=== PATIENT | female | born 1965 | race Caucasian/White ===

== ENCOUNTER 2024-04-01 08:39 | Emergency (ER) | payer OTHER, SELFPAY ==
[2024-04-01 08:44] VITALS: BP 125/67
[2024-04-01 10:03] VITALS: BMI 19.0
--- NOTE | 2024-04-01 11:01 | ED.GENMED ---
History of Present Illness
General
Chief Complaint: Musculo-Skeletal Complaint
Source: patient
Exam Limitations: none
Time Seen by Provider: 04/01/24 09:57
Nursing documentation reviewed up to this point in time: agreed with
Travel History
Have you had any contact with someone who has COVID-19?: No
Do you have any symptoms of coronavirus? Fever > 100 degrees, chills, cough, shortness of breath, sore throat, loss of taste or smell, muscle aches, or headache?: No
History of Present Illness
History of Present Illness:
58 y/o F with no sig pmh
inversion injury to L ankle yesterday 3 pm
has been able to walk on it
swelling and bruising present
felt a crack during the injury
came last night but the wait was very long and left
she has not taken anything for pain
used a cane just to assist her walking but says today she actually feels better;
Past History
Past History
ED Past Medical History: None
ED Past Surgical History: None
Social History
Tobacco: Non-smoker
Personal:
Living: with family
Employment: Employed
Review of Systems
Review of Systems
Allergies reviewed?: Yes
All Other Systems: Not applicable
Phy Exam
Physical Exam
Physical Exam:
GENERAL: Alert , in no apparent distress, comfortable at rest
HEAD: NCAT
CV: 2+ DP PULSES B/L
NEUROLOGICAL: Alert and oriented, no focal neuro deficits, , 5/5 strength, sensation intact, ambulation slight limp right leg
SKIN: Warm and dry, ecchymosis
MUSCULOSKELETAL: mild STS right ankle with tenderness to malleolus laterally; minimal pain with inversion, eversion
no tenderness at the base of the 5th metatarsal, no other foot tenderness
some bruising to anterior lateral midfoot/ankle region
no knee/prox tib/fib tenderness, full painless ROM;
PSYCH: Normal and appropriate interaction.
Course
Orders/Labs/Results
Orders:
Orders
04/01/24 08:47
CR Ankle - Left Min 3 Views Urgent
Comment:
Reason For Exam: Injury
Vital Signs
Initial and Last Documented VS:
Initial Vital Signs
Temp Pulse Resp BP Pulse Ox
98.1 F 55 16 125/67 100
04/01/24 08:44 04/01/24 08:44 04/01/24 08:44 04/01/24 08:44 04/01/24 08:44
Last Documented Vital Signs
Temp Pulse Resp BP Pulse Ox
98.1 F 55 16 125/67 100
04/01/24 08:44 04/01/24 08:44 04/01/24 08:44 04/01/24 08:44 04/01/24 08:44
MDM/Problems Addressed
Differential Diagnosis Includes:
ankle sprain, ankle fracfture
MDM/Problems Addressed:
58-year-old female with no medical problems other than an inversion injury of the left ankle yesterday with pain swelling and bruising laterally but she is able to weight-bear. Nothing taken for pain. She came last night but left before being seen
because of the long wait time. She says she feels better today than yesterday. She has been icing it off-and-on. On exam she has some soft tissue swelling and bruising over the left lateral proximal foot and ankle region with minimal tenderness
at the anterior left lateral malleolus, full range of motion, no tenderness to the base of the fifth metatarsal.
Able to ambulate. X-rays independently reviewed by me and negative for fracture. Aime wrap and Aircast, use the cane as necessary, follow-up Ortho as needed
*Critical Care Note
Total Time (30-74mins, 75-104mins- exclusive of procedures): Not Applicable
ED Attending Note
-
Portions of this chart may have been created with voice recognition software.� Occasional wrong word or��sound alike� substitutions may have occurred due to the inherent limitations of voice recognition software.
Discharge Plan
Departure
Patient Disposition: Home (Routine Discharge)
Date of Disposition: 04/01/24
Time of Disposition: 11:07
Patient with high blood pressure during this ER visit?: No
Condition: Fair
Covid-19: Not Applicable
Discharge Problem:
Left ankle sprain
Instructions: Sprain (DC)
Prescriptions:
No Action
No Current Medications
Referrals:
Volodymyr Flanagan MD [Active] - Follow up in 5-7 days (as needed, ortho)
Nadeem Morales MD [Family Provider] -
Activity Restrictions/Additional Instructions:
Ice off-and-on to your ankle while awake. Use the Aime wrap and Aircast during the day. Take it off at night. You likely sprained your ankle. There is no signs of fracture. You should improve as the days go on. If you are finding that you are
still having pain or it is worse you should follow-up with orthopedics. Return to the ER for any concerns
Interventions
Interventions:
*Risk Screen - Suicide Last Done: 04/01/24 10:04
*General Assessment Last Done: 04/01/24 10:05
*Neglect/Abuse Screening Last Done: 04/01/24 10:04
ED- Fall Risk Assessment Last Done: 04/01/24 10:04
*ED COVID-19 Vaccine History Last Done: 04/01/24 10:04
ED-Musculoskeletal Assessment Last Done: 04/01/24 10:05
Discharge Date and Time
Print Language: [id number]
== END 2024-04-01 11:20 | disposition home or self-care (01) ==
LOC: EMR 08:39
PROVIDERS: EMERGENCY PHYSICIAN Emergency Medicine; FAMILY PHYSICIAN Family Medicine
DX: S93.402A Sprain of unspecified ligament of left ankle, initial encounter (principal); X50.1XXA Overexertion from prolonged static or awkward postures, initial encounter
CPT/HCPCS: 99283; 73610

== ENCOUNTER → 2025-07-27 11:41 | Outpatient (REF) | payer OTHER, SELFPAY | LOC: RAD 11:41 | PROVIDERS: ATTENDING PHYSICIAN Student in an Organized Health Care Education/Training Program | DX: R52 Pain, unspecified (principal) | CPT/HCPCS: 71046 ==